=== PATIENT | female | born 1980 | race African-American/Black ===

== ENCOUNTER 2020-09-21 13:01 | Outpatient (CLI) | payer OTHER, SELFPAY ==
--- NOTE | ~2020-09-21 | US_ITS ---
EXAMINATION: US pelvic complete w TV DATE: 09/21/2020 14:18 INDICATION: Abnormal uterine bleeding TECHNIQUE: Multiple transabdominal and endovaginal sonographic images of the pelvis were obtained. COMPARISON: None. FINDINGS: The uterus measures 9.7 x 6.8 x 7.1 cm. There are multiple masses of the uterus which have the appearance of intramural fibroids. The largest measures 2.8 cm in the posterior uterine body. The re is a diffuse, heterogeneous appearance of the myometrium. The endometrial complex measures 8 mm. T he ovaries are not visualized however no adnexal abnormality is seen. There is no free fluid in the p kaitlin. IMPRESSION: 1. Diffuse heterogeneous appearance of the myometrium which is a nonspecific finding but can be seen in the setting of adenomyosis. 2. Intramural fibroids measuring up to 2.8 cm. Reviewed, dictated and finalized at location A. IMPRESSION: 1. Diffuse heterogeneous appearance of the myometrium which is a nonspecific fi nding but can be seen in the setting of adenomyosis. 2. Intramural fibroids measuring up to 2.8 cm.
[2020-09-21 14:07] LABS: Hematocrit 40.1 % (37.0-47.0); Hemoglobin 12.9 g/dL (12.0-15.0); Mean Corpuscular HGB Conc 32.2 g/dl (32-36); Mean Corpuscular Volume 83.9 fl (80-100); Mean Platelet Volume 9.9 fl (7.4-10.4); Platelet Count Result 304 k/mm3 (150-375); Red Blood Count 4.78 M/mm3 (4.2-5.4); Red Cell Distribution Width 14.5 % (11.5-14.5); White Blood Count 4.3 K/mm3 (4.5-10.0)
[2020-09-21 15:01] LABS: Free T4 Free Thyroxine 0.97 ng/mL (0.78-2.19)
== END 2020-09-21 13:02 | disposition home or self-care (01) ==
PROVIDERS: PCP Internal Medicine; Visit Provider Nurse Practitioner
DX: N93.8 Other specified abnormal uterine and vaginal bleeding (principal); D25.9 Leiomyoma of uterus, unspecified
CPT/HCPCS: 36415; 76830; 76856; 84439; 84443; 85027

== ENCOUNTER 2020-09-26 15:32 | Outpatient (CLI) | payer OTHER, SELFPAY ==
--- NOTE | ~2020-09-26 | MM_ITS ---
EXAMINATION: MM screening alfredo BI w messi HISTORY: Screening mammogram TECHNIQUE: Craniocaudal and mediolateral oblique 3-D tomosynthesis images were obtained and synthetic 2-D images were generated. CAD analysis was submitted and interpreted. COMPARISON: No prior mammogram is available for comparison at this institution. BREAST PARENCHYMAL COMPOSITION: The breasts are almost entirely fatty. FINDINGS: There is no evidence of suspicious mass, calcification, or architectural distortion to sugg est malignancy in either breast. There has been no suspicious interval change. IMPRESSION: 1. No mammographic evidence of malignancy. 2. Recommend routine screening mammography in one year. BI-RADS Category 1: Negative Reviewed, dictated and finalized at location A.
== END 2020-09-26 15:33 | disposition home or self-care (01) ==
LOC: ANHIMG 15:34
PROVIDERS: PCP Internal Medicine; Visit Provider Nurse Practitioner
DX: Z12.31 Encounter for screening mammogram for malignant neoplasm of breast (principal)
CPT/HCPCS: 77063; 77067